=== PATIENT | female | born 1990 | race Caucasian/White ===

== ENCOUNTER 2017-04-25 04:25 | Inpatient (IN) | payer OTHER ==
[2017-04-25 05:02] VITALS: BMI 24.7
[2017-04-25] MEDS ORDERED: Ondansetron HCl/PF 4 MG/2 ML Vial IVP PRN ×3 (05:18→19:47)
[2017-04-25] MEDS ORDERED: HYDROcodone/Acetaminophen 5/325 mg Tablet PO PRN ×2 (05:18)
[2017-04-25] MEDS ORDERED: Ibuprofen 800 MG TAB PO PRN (05:18)
[2017-04-25] MEDS ORDERED: Promethazine HCl 25 MG/ML VIAL IM PRN ×2 (05:18→08:05)
[2017-04-25] MEDS ORDERED: Lidocaine 1% (PF) 30 ML VIAL SC PRN (05:18)
[2017-04-25] MEDS ORDERED: Carboprost 250 MCG/ML AMP IM PRN (05:18)
[2017-04-25] MEDS ORDERED: Lactated Ringer's 1,000 ML IV SCH (05:18)
[2017-04-25] MEDS ORDERED: Diphenoxylate HCl/Atropine Tablet PO PRN (05:18)
[2017-04-25] MEDS ORDERED: LR 500 ML/Oxytocin 10 units 500 ML IV SCH (05:18)
[2017-04-25] MEDS: Lactated Ringer's 1,000 ML IV SCH ×2 (05:50→13:47)
[2017-04-25 06:36] LABS: Hematocrit 36.5 % (36.0-47.0); Mean Platelet Volume 9.4 fL (7.4-10.4); Red Blood Cell (RBC) Count 4.32 mill/uL (4.20-5.40); White Blood Cell (WBC) Count 10.4 thou/uL (4.8-10.8)
[2017-04-25] MEDS ORDERED: Fentanyl 4 mcg/Marc 0.1% Cadd 100 ML ONE (07:19)
--- NOTE | 2017-04-25 07:59 | PDOC.LDHP ---
Labor and Delivery H&P Chief complaint: loss of fluid HPI: Pt is a 26yo w SROM today at approx 0400 @ 38.0 weeks. Current gestational age (weeks): 38 Due date: 05/09/17 Dating criteria: last menstrual period, first trimester ultrasound Grav: 2 Para: 1 OB History Details: 2015 Current complications: none Abnormal US findings: No Past Medical History: none Current medications: pre-nicolle vitamins Previous surgical history: none Allergies/Adverse Reactions: Allergies Allergy/AdvReac Type Severity Reaction Status Date / Time clindamycin Allergy Mild Rash Verified 04/25/17 04:54 Social history: none - Physical Exam Vital signs reviewed and normal: yes General: resting, breathing through contractions Heart: RRR Lungs: nonlabored breathing Abdomen: gravid Extremeties: no edema FHT: category 1 - Vaginal Exam cm dilated: 3 Effacement: 90% Station: -2 - OB Labs Blood type: AB RH: negative Antibody Screen: negative HIV: negative RPR: negative HEPSAg: negative 1 hour GCT: negative GBS: negative Urine drug screen: not done Rubella: immune - Assessment L&D Assessment: term rupture in membranes - Plan Plan: admit to L&D, labor augmentation if indicated, informed consent obtained, anesthesia consult for pain management -: A/P: 26yo @ 38.0 weeks w ROM, pitocin ordered for augmentation if indicated. FHT reassuring.
[2017-04-25] MEDS ORDERED: Acetaminophen 325 MG TAB PO PRN (08:05)
[2017-04-25] MEDS ORDERED: Naloxone HCl 0.4 mg/ml Vial IVP PRN ×2 (08:05)
[2017-04-25] MEDS ORDERED: ePHEDrine/0.9% NaCl/PF SYRINGE 50 mg/10 ml SLOW IVP PRN (08:05)
[2017-04-25] MEDS ORDERED: Eucerin (Mineral Oil/Petrolatum,White) 30 gm Jar TOP PRN (08:05)
[2017-04-25] MEDS ORDERED: Lactated Ringer's 500 ML IV PRN (08:05)
[2017-04-25] MEDS ORDERED: diphenhydrAMINE 50 MG/ML VIAL IVP PRN (08:05)
[2017-04-25] MEDS ORDERED: Fentanyl 4mcg/Marcaine 0.1% Cassette 100 ML EPIDURAL SCH (08:15)
[2017-04-25] MEDS ORDERED: Communication Order-Pharmacy FS SCH (08:15)
--- NOTE | 2017-04-25 11:31 | PDOC.LDPN ---
Labor & Delivery Progress Note - Subjective Subjective: comfortable - Objective Vital signs reviewed and normal: yes General: resting Dilation: 4 Effacement: 100% Station: -1 FHT: category 1 Resuscitative measures: maternal position change - Assessment (1) 38 weeks gestation of Code(s): Z3A.38 - 38 WEEKS GESTATION OF Current Visit: Yes Status : Acute (2) Rupture of membranes with clear amniotic fluid Code(s): O42.019 - PRETRM RODRIGUE ROM, ONSET LABOR W/N 24 HOURS OF RUPT, UNSP TRI Current Visit: Yes Status: Acute Plan: continue plan of care, pitocin for augmentation
--- NOTE | 2017-04-25 12:38 | PDOC.LDPN ---
Labor & Delivery Progress Note - Subjective Subjective: comfortable - Objective Vital signs reviewed and normal: yes General: resting Dilation: 8 Effacement: 100% Station: 0 FHT: early decelerations, variability present [place] contractions every: 2 - Assessment (1) 38 weeks gestation of Code(s): Z3A.38 - 38 WEEKS GESTATION OF Current Visit: Yes Status : Acute (2) Rupture of membranes with clear amniotic fluid Code(s): O42.019 - PRETRM RORDIGUE ROM, ONSET LABOR W/N 24 HOURS OF RUPT, UNSP TRI Current Visit: Yes Status: Acute Plan: continue plan of care
[2017-04-25] MEDS: LR / Pitocin 40 units/1000 ml 1,000 ML IV PRN ×2 (16:10→17:09)
--- NOTE | 2017-04-25 16:50 | PDOC.OPDEL ---
OB Operative/Delivery Note Delivery Dr/Surgeon: Yves Pre-Delivery Diagnosis: active labor, ruptured membrane Procedure/Post Delivery Dx: spontaneous vaginal delivery Weeks gestation: 38 - Findings A Sex: male - 1 min: 6 - 5 min: 8 - Additional Findings/Plan Placenta delivered: spontaneous Repaired Obstetrical Laceration: right labial Estimated blood loss: 300ml Compilations/Other Findings: cord blood for banking collected, loose nuchal reduced at perineum prior to delivery of shoulders Post delivery plan: routine recovery
[2017-04-25] MEDS ORDERED: Milk Of Magnesia 30 ML UDCUP PO PRN (19:47)
[2017-04-25] MEDS ORDERED: Preparation H Ointment 28 GM TUBE PR PRN (19:47)
[2017-04-25] MEDS ORDERED: Bisacodyl 10 MG SUPP PR PRN (19:47)
[2017-04-25] MEDS ORDERED: Lanolin Ointment 7 GM TUBE TOP PRN (19:47)
[2017-04-25] MEDS ORDERED: Adacel (T-DAP) 0.5 ML VIAL IM ONE (19:47)
[2017-04-25] MEDS ORDERED: LR / Pitocin 40 units/1000 ml 1,000 ML IV SCH (19:47)
[2017-04-25] MEDS ORDERED: diphenhydrAMINE 25 MG CAP PO PRN (19:47)
[2017-04-25] MEDS ORDERED: Benzocaine/Menthol 20-0.5% 60 ML CAN TOP PRN (19:47)
[2017-04-25] MEDS ORDERED: Ferrous Sulfate 325 MG TAB PO SCH (20:00)
[2017-04-25] MEDS: Ibuprofen 800 MG TAB PO SCH (20:41)
[2017-04-25] MEDS: Docusate (Surfak) 240 MG CAP PO SCH (20:41)
[2017-04-25] MEDS ORDERED: Bupivacaine 0.25% HCL 30 ML VIAL ONE (21:08)
[2017-04-26 06:21] LABS: Hematocrit 30.7 % (36.0-47.0); Mean Platelet Volume 9.1 fL (7.4-10.4); Red Blood Cell (RBC) Count 3.56 mill/uL (4.20-5.40); White Blood Cell (WBC) Count 14.3 thou/uL (4.8-10.8)
[2017-04-26] MEDS ORDERED: Sodium Chloride 0.9% 0 ML ONE (06:23)
[2017-04-26] MEDS: Ibuprofen 800 MG TAB PO SCH ×4 (06:25→21:51)
[2017-04-26] MEDS: Ferrous Sulfate 325 MG TAB PO SCH ×2 (08:45→18:48)
--- NOTE | 2017-04-26 08:50 | PDOC.PP ---
Post Progress Note Post Day #: 1 Subjective: Pt is "a mess." baby was up screaming all night, last feeding was 0300am. She needs help with . no other concerns PO intake tolerated: yes Flatus: yes Ambulation: yes Vital Signs (12 hours) Temp Pulse Resp BP 04/26/17 04:45 98.1 F 91 18 116/56 L 04/26/17 00:25 98.3 F 92 18 111/67 04/25/17 21:55 98.0 F 98 18 132/67 Weight Weight 158 lb - Physical Examination General: NAD Cardiovascular: no m/r/g Respiratory: non-labored breathing Abdominal: lochia (moderate) Extremities: negative homans (B) Neurological: no gross focal deficits Psychiatric: A&Ox3 Result Diagrams: 04/26/17 05:44 Additional Labs: Post Labs Blood Type AB NEGATIVE 04/25/17 05:45 Hep Bs Antigen Non-Reactive S/CO (NonReactive) 04/25/17 05:45 (1) (spontaneous vaginal delivery) Code(s): O80 - ENCOUNTER FOR FULL-TERM UNCOMPLICATED DELIVERY Status: Acute - Assessment/Plan A: G1 now P1 s/p with NML PPD #1 exam P: IBCLC consult. Plan for discharge home tomorrow.
[2017-04-26] MEDS: Prenatal Vitamin 1 TAB PO SCH (09:08)
[2017-04-26] MEDS: Docusate (Surfak) 240 MG CAP PO SCH ×2 (09:08→21:50)
--- NOTE | 2017-04-26 09:57 | PDOC.PP ---
Post Progress Note Post Day #: 1 Subjective: doing well, see prev note per Mandi Rao, working on breast feeding Vital Signs (12 hours) Temp Pulse Resp BP 04/26/17 09:00 97.9 F 95 18 125/62 04/26/17 08:00 97.9 F 95 18 04/26/17 04:45 98.1 F 91 18 116/56 L 04/26/17 00:25 98.3 F 92 18 111/67 Weight Weight 158 lb - Physical Examination Respiratory: non-labored breathing Fundus firm & at: below umb Psychiatric: A&Ox3 Result Diagrams: 04/26/17 05:44 Additional Labs: Post Labs Blood Type AB NEGATIVE 04/25/17 05:45 Hep Bs Antigen Non-Reactive S/CO (NonReactive) 04/25/17 05:45 (1) 38 weeks gestation of Code(s): Z3A.38 - 38 WEEKS GESTATION OF Status: Acute (2) Rupture of membranes with clear amniotic fluid Code(s): O42.019 - PRETRM RODRIGUE ROM, ONSET LABOR W/N 24 HOURS OF RUPT, UNSP TRI Status: Acute (3) (spontaneous vaginal delivery) Code(s): O80 - ENCOUNTER FOR FULL-TERM UNCOMPLICATED DELIVERY Status: Acute - Assessment/Plan PPD 1 doing well, working on nursing issues, pain controlled. Likely DC tomorrow.
[2017-04-26] MEDS: Acetaminophen/Codeine 30-300mg Tablet PO PRN (20:25)
[2017-04-27] MEDS: Acetaminophen/Codeine 30-300mg Tablet PO PRN (04:22)
[2017-04-27] MEDS: Ibuprofen 800 MG TAB PO SCH (05:45)
[2017-04-27 08:33] VITALS: BP 113/73; TEMP 98.2
[2017-04-27] MEDS: Prenatal Vitamin 1 TAB PO SCH (09:44)
[2017-04-27] MEDS: Ferrous Sulfate 325 MG TAB PO SCH (09:45)
[2017-04-27] MEDS: Docusate (Surfak) 240 MG CAP PO SCH (09:45)
--- NOTE | 2017-04-27 09:52 | PDOC.PP ---
Post Progress Note Post Day #: 2 Subjective: doing well, nursing well no concerns PO intake tolerated: yes Vital Signs (12 hours) Temp Pulse Resp BP 04/27/17 08:32 98.2 F 84 20 113/73 04/27/17 07:45 97.9 F 86 18 Weight Weight 158 lb - Physical Examination General: NAD Respiratory: non-labored breathing Abdominal: no distention Fundus firm & at: below umb Extremities: negative homans (B) Skin: no rash Psychiatric: A&Ox3, normal affect Result Diagrams: 04/26/17 05:44 Additional Labs: Post Labs Blood Type AB NEGATIVE 04/25/17 05:45 Hep Bs Antigen Non-Reactive S/CO (NonReactive) 04/25/17 05:45 (1) 38 weeks gestation of Code(s): Z3A.38 - 38 WEEKS GESTATION OF Status: Acute (2) Rupture of membranes with clear amniotic fluid Code(s): O42.019 - PRETRM RODRIGUE ROM, ONSET LABOR W/N 24 HOURS OF RUPT, UNSP TRI Status: Acute (3) (spontaneous vaginal delivery) Code(s): O80 - ENCOUNTER FOR FULL-TERM UNCOMPLICATED DELIVERY Status: Acute - Assessment/Plan PPD2 doing well, no concerns, DC home today.
== END 2017-04-27 12:30 | disposition home or self-care (01) | DRG 775 ==
LOC: L&D/OP 04:25 → L&D 05:17 → 3SW 19:45
PROVIDERS: ADMIT Obstetrics & Gynecology; ATTEND Obstetrics & Gynecology
PROC: 10E0XZZ Delivery of Products of Conception, External Approach (ICD-10-PCS; principal; 2017-04-25)
PROC: 0HQ9XZZ Repair Perineum Skin, External Approach (ICD-10-PCS; 2017-04-25)
PROC: 4A0HXCZ Measurement of Products of Conception, Cardiac Rate, External Approach (ICD-10-PCS; 2017-04-25)
DX: O76 Abnormality in fetal heart rate and rhythm complicating labor and delivery (principal); O69.81X0 Labor and delivery complicated by cord around neck, without compression, not applicable or unspecified; O70.0 First degree perineal laceration during delivery; Z3A.38 38 weeks gestation of pregnancy; Z37.0 Single live birth
CPT/HCPCS: 36415; 85027; 86780; 87340; A4216; J2405; J2550; J7120; S0020

== ENCOUNTER 2020-02-22 06:58 | Inpatient (IN) | payer OTHER ==
[2020-02-22] MEDS ORDERED: NS / Oxytocin 40 units/1000ml 1,000 ML ONE ×2 (07:21→09:55)
[2020-02-22] MEDS ORDERED: Lidocaine 1% (PF) 30 ML VIAL ONE (07:21)
[2020-02-22 07:23] VITALS: BMI 24.3
[2020-02-22] MEDS ORDERED: Fentanyl 4 mcg/Bup 0.1% Cadd 100 ML ONE (07:31)
[2020-02-22 07:43] LABS: Hemoglobin 10.8 g/dL (12.0-16.0); Mean Corpuscular HGB CONC 32.5 g/dL (32.0-36.0); Mean Corpuscular Hemoglobin 26.6 pg (27.0-31.0); Mean Corpuscular Volume 81.8 fL (78.0-98.0); Mean Platelet Volume 10.7 fL (7.4-10.4); Platelet Count 201 thou/uL (130-400); RBC Distribution Width 13.2 % (11.5-14.5); Red Blood Cell (RBC) Count 4.05 mill/uL (4.20-5.40)
[2020-02-22] MEDS ORDERED: NS w/ Oxytocin 10 units 500 ML IV SCH ×2 (08:00)
[2020-02-22] MEDS ORDERED: NS / Oxytocin 40 units/1000ml 1,000 ML IV SCH ×2 (08:00→09:48)
[2020-02-22] MEDS ORDERED: Ibuprofen 800 MG TAB PO PRN (08:00)
[2020-02-22] MEDS ORDERED: Carboprost 250 MCG/ML AMP IM PRN (08:00)
[2020-02-22] MEDS ORDERED: Lidocaine 1% (PF) 30 ML VIAL SC PRN (08:00)
[2020-02-22] MEDS ORDERED: Misoprostol 200 MCG TAB RC PRN (08:00)
[2020-02-22] MEDS ORDERED: Methylergonovine 0.2 MG/ML VIAL IM PRN ×2 (08:00→09:48)
[2020-02-22 08:17] LABS: HBSAg Index 0.17 S/CO (0-0.99); Hep B Surf Ag Non-Reactive S/CO (NonReactive); Syphilis Antibody Nonreactive (Nonreactive); Syphilis Antibody Index 0.03 S/CO (<1.00 Non-Reactive)
[2020-02-22] MEDS ORDERED: HYDROcodone/Acetaminophen 5/325 mg Tablet PO SCH (08:45)
[2020-02-22] MEDS ORDERED: Lanolin Ointment 7 GM TUBE TOP PRN (09:48)
[2020-02-22] MEDS ORDERED: Milk Of Magnesia 30 ML UDCUP PO PRN (09:48)
[2020-02-22] MEDS ORDERED: hydrALAZINE 20 MG/ML VIAL SLOW IVP PRN (09:48)
[2020-02-22] MEDS ORDERED: Benzocaine-Menthol 82.5 ML CAN TOP PRN (09:48)
[2020-02-22] MEDS ORDERED: Ondansetron PF 4 MG/2 ML Vial IVP PRN (09:48)
[2020-02-22] MEDS ORDERED: Misoprostol 200 MCG TAB VAG PRN (09:48)
[2020-02-22] MEDS ORDERED: Methylergonovine 0.2 MG TAB PO PRN (09:48)
[2020-02-22] MEDS ORDERED: Bisacodyl 10 MG SUPP PR PRN (09:48)
[2020-02-22] MEDS ORDERED: Docusate Calcium (SURFAK) 240 MG CAP PO SCH (10:15)
[2020-02-22] MEDS ORDERED: Prenatal Vitamin 1 TAB PO SCH (10:15)
[2020-02-22] MEDS: Ibuprofen 800 MG TAB PO SCH ×2 (13:07→21:05)
[2020-02-22] MEDS: Ferrous Sulfate 325 MG TAB PO SCH (16:31)
[2020-02-22 17:02] LABS: SARS-CoV-2 MS2 Positive; SARS-CoV-2 N Gene Negative; SARS-CoV-2 S Gene Negative; SARS-CoV-2 by NAA Not Detected (NotDetected); SARS-CoV-2 orf1ab Negative
[2020-02-22] MEDS ORDERED: HYDROcodone/Acetaminophen 5/325 mg Tablet PO PRN (18:31)
[2020-02-22] MEDS: HYDROcodone/Acetaminophen 5/325 mg Tablet PO PRN (18:37)
[2020-02-22] MEDS: Docusate Calcium (SURFAK) 240 MG CAP PO SCH (21:05)
[2020-02-23] MEDS: HYDROcodone/Acetaminophen 5/325 mg Tablet PO PRN (00:57)
[2020-02-23] MEDS: Ibuprofen 800 MG TAB PO SCH (05:13)
--- NOTE | 2020-02-23 06:52 | PDOC.PP ---
Post Progress Note Post Day #: PPD1 Subjective: Doing well. Wants to go home. PO intake tolerated: yes Flatus: yes Ambulation: yes Vital Signs (12 hours) Temp Pulse Resp BP 02/23/20 05:14 98.3 F 77 16 106/58 L 02/23/20 01:00 98.1 F 85 16 101/58 L 02/22/20 20:00 98.3 F 101 H 16 126/62 Weight Weight 70.307 kg - Physical Examination General: NAD Respiratory: non-labored breathing Neurological: no gross focal deficits Psychiatric: normal affect Result Diagrams: 02/22/20 07:26 Additional Labs: Post Labs Hep Bs Antigen Non-Reactive S/CO (NonReactive) 02/22/20 07:26 Blood Type AB NEGATIVE 02/22/20 07:26 - Assessment/Plan Doing well s/p Requests discharge. Precautions. RTC [address] Marinelli.
[2020-02-23] MEDS: Ferrous Sulfate 325 MG TAB PO SCH (07:34)
[2020-02-23] MEDS: Docusate Calcium (SURFAK) 240 MG CAP PO SCH (07:38)
[2020-02-23 08:11] VITALS: BP 108/55; TEMP 98
[2020-02-23] MEDS ORDERED: Prenatal Vitamin 1 TAB PO SCH (09:00)
--- NOTE | 2020-02-23 10:33 | DN ---
DATE OF PROCEDURE: 02/22/2020 The patient delivered a female on 02/22/2020 at 0750 hours by term spontaneous vaginal delivery at 39 weeks and 1 day gestation. Apgars were 5 and 9. weight was 3310 g. Complicating the delivery was shoulder dystocia requiring suprapubic pressure to relieve the shoulder. This process was relieved in about 20 seconds in total from the time of recognition. Of note, the patient had a loose nuchal cord. Infant was delivered to the maternal abdomen, where the cord was clamped and cut and the was handed to the attendants for evaluation and resuscitation. Placenta delivered spontaneously before which cord blood was collected at maternal request with a provided kit. Placenta delivered spontaneously followed by Pitocin infusion. ESTIMATED BLOOD LOSS: 200 mL. Quantitative blood loss unavailable at the time of dictation. Lacerations, none. Dr. Sharif is the delivering physician. COUNTS: Correct. COMPLICATIONS: Again, shoulder dystocia relieved with suprapubic pressure and McRobert's. Mother and baby are in the room stable, in the immediate . Job ID: [id number]
== END 2020-02-23 13:40 | disposition home or self-care (01) | DRG 807 ==
LOC: L&D/OP 06:58 → L&D 07:31 → 3SW 11:09
PROVIDERS: ADMIT Obstetrics & Gynecology; ATTEND Obstetrics & Gynecology
PROC: 10E0XZZ Delivery of Products of Conception, External Approach (ICD-10-PCS; principal; 2020-02-22)
DX: O75.0 Maternal distress during labor and delivery (principal); Z37.0 Single live birth; Z20.828 Contact with and (suspected) exposure to other viral communicable diseases; O62.3 Precipitate labor; Z3A.39 39 weeks gestation of pregnancy; O66.0 Obstructed labor due to shoulder dystocia; O69.81X0 Labor and delivery complicated by cord around neck, without compression, not applicable or unspecified
CPT/HCPCS: 51701; 85027; 86780; 86850; 86900; 86901; 87340; 87635; 99285; J2001; U0003